=== PATIENT | male | born 1990 | race Caucasian/White ===

== ENCOUNTER 2020-11-19 18:39 | Emergency (ER) | payer MEDICAID, OTHER ==
[~2020-11-19] VITALS: Ht 177.8 cm; Wt 135.0 kg
[2020-11-19 21:42] LABS: HEMATOCRIT. 39.6 % (42.0-52.0); HEMOGLOBIN. 13.1 g/dL (14.0-18.0); MEAN CORPUSCULAR HEMOGLOBIN 27.6 pg (28.0-32.0); MEAN CORPUSCULAR VOLUME 83.4 fL (80.0-94.0); MEAN PLATELET VOLUME 7.7 fl (7.4-10.4); PLATELET 277 x1000/uL (130-400); RED BLOOD CELL COUNT 4.74 mill/uL (4.7-6.1); RED CELL DISTRIBUTION WIDTH 14.7 % (11.6-14.6)
[2020-11-19 21:47] LABS: CHLORIDE 103 mEq/L (98-107)
[2020-11-19 22:11] LABS: PLATELET ESTIMATE NORMAL
[2020-11-20] MEDS ORDERED: LORA-249 MT (00:33)
[2020-11-20] MEDS ORDERED: LORAZEPAM 0.5MG TABLET PO ONE (00:45)
[2020-11-20 01:02] VITALS: BP 122/75
== END 2020-11-20 01:20 | disposition home or self-care (01) ==
LOC: ER 18:39
DX: R07.89 Other chest pain (principal); R00.2 Palpitations; C81.90 Hodgkin lymphoma, unspecified, unspecified site; F41.9 Anxiety disorder, unspecified; R03.0 Elevated blood-pressure reading, without diagnosis of hypertension; D72.825 Bandemia
CPT/HCPCS: 36415; 71045; 80048; 84484; 85025; 85379; 93005; 99285